=== PATIENT | male | born 1955 | race Caucasian/White ===

== ENCOUNTER 2020-08-09 09:57 | Day surgery (SDC) | payer MEDICARE ==
[~2020-08-09] VITALS: Ht 182.9 cm; Wt 77.1 kg
[~2020-08-09 09:57] MED LIST: MIDAZOLAM INJ 2MG/2ML VIAL (J2250 PER 1MG) As Ordered ONE; OFLOXACIN 0.3 % (OCUFLOX) OPTH SOL 5ML OS ONE; PHENYLEPHRINE 2.5% OPHTH SOL 2ML OS ONE; PROPARACAINE 0.5% OPHTH SOL 15ML OS ONE; TROPICAMIDE 1% OPHTH SOLN 2ML OS ONE; fentaNYL 100 MCG/2 ML INJECTION (J3010) As Ordered ONE
[2020-08-09] MEDS ORDERED: CEFUROXIME 1MG/0.1ML INTRACAMERAL INJ As Ordered ONE (10:18)
[2020-08-09] MEDS ORDERED: POVIDONE-IODINE 5% OPHTH PREP SOL 30ML As Ordered ONE (10:18)
[2020-08-09] MEDS ORDERED: DUOVISC (0.50ML VISCOAT/0.55ML PROVISC) OPHTH KIT As Ordered ONE (10:18)
[2020-08-09] MEDS ORDERED: BSS IRR 500ML/OMIDRIA 4ML IRR BAG (OR ONLY) As Ordered ONE (10:19)
[2020-08-09 12:10] VITALS: BP 135/69
[2020-08-09] MEDS ORDERED: ONDANSETRON 4MG/2ML VIAL IV PRN (12:15)
[2020-08-23] MEDS ORDERED: lumigan OD (09:49)
[2020-08-23] MEDS ORDERED: TRUS1SOL OD (09:49)
[2020-08-23] MEDS ORDERED: SIMB1SUS OD (09:49)
--- NOTE | 2020-09-04 17:09 | RO ---
OPERATIVE NOTE DATE OF OPERATION: 08/09/2020 PREOPERATIVE DIAGNOSES: 1. Visually significant nuclear sclerotic cataract, left eye. 2. Primary open angle glaucoma, moderate stage left eye. POSTOPERATIVE DIAGNOSES: 1. Visually significant nuclear sclerotic cataract, left eye. 2. Primary open angle glaucoma, moderate stage left eye. PROCEDURES: 1. Cataract extraction with use of phacoemulsification, and placement of intraocular lens, AU00T0, 17.5 D, left eye. 2. Placement of Glaukos iStent inject, left eye. 3. Use of endoscopic cyclophotocoagulation, left eye ANESTHESIA: Local (Omidria) with MAC. COMPLICATIONS: None. POSTOPERATIVE CONDITION: Stable. INDICATIONS FOR SURGERY: Blurred vision affecting patient's activities of daily living. DESCRIPTION OF PROCEDURE: The patient was seen in the preoperative area and properly identified. The correct operative eye was identified and marked. The patient received topical anesthetic, antibiotics, and topical dilating drops. The patient was then transferred to the operating room. The correct side was re-identified and a timeout was performed. The eye was prepped and draped in a sterile fashion. The eyelids were isolated with Tegaderm tape and the lids were held open with an adjustable speculum. A 1.0mm paracentesis incision was made. Omidria was injected into the anterior chamber. Viscoelastic was then injected into the anterior chamber through the paracentesis. Using a 2.4mm sharp-tipped keratome, the anterior chamber was entered via a temporal clear cornea incision. A continuous curvilinear capsulorhexis was created with Utrata forceps. Hydrodissection was performed with BSS on a blunt cannula until the nucleus was able to rotate freely. The crystalline lens was phacoemulsified and aspirated. Irrigation/aspiration was used to remove the cortical material Cohesive viscoelastic was placed into the capsular bag to deepen it. The implant was placed into the capsular bag and allowed to unfold. Placement was confirmed by visualizing the anterior capsulorhexis. Additional viscoelastic was placed in the anterior chamber, and on top of the cornea. The head was untaped, and rotated away. The microscope was rotated to 45 degrees. A gonioprism was placed on the cornea and the angle was visualized. The iStent inject was placed into the trabecular meshwork, approximately 4 clock hours apart without difficulty. A small gush of heme was noted indicating appropriate placement. No hyphema was present. The head was placed face up and the microscope to 0 degrees. ECP was carried out after viscoelastic was placed into the ciliary sulcus. Irrigation/aspiration was used to remove the viscoelastic. The clear corneal incision was hydrated with BSS on a blunt cannula. The lens was well positioned. Cefuroxime was injected into the anterior chamber. The incisions were then tested for leaks and found to be negative. The eye was then palpated for appropriate pressure and adjusted accordingly with BSS. The eyelid speculum was then carefully removed. A shield was placed over the eye. The patient tolerated the procedure well and was discharge to the recovery unit in a stable condition. GENIE
== END 2020-08-09 12:40 | disposition home or self-care (01) ==
LOC: M SDC 09:57
PROVIDERS: ATTEND Ophthalmology
DX: H40.1122 Primary open-angle glaucoma, left eye, moderate stage (principal); H25.12 Age-related nuclear cataract, left eye; K21.9 Gastro-esophageal reflux disease without esophagitis; F17.210 Nicotine dependence, cigarettes, uncomplicated
CPT/HCPCS: 66183; 66711; 66984; C1783; J2250; J2405; J3010; V2632

== ENCOUNTER → 2020-08-25 | Outpatient (CLI) | payer BC ==
[~2020-08-25] MED LIST changes: -MIDAZOLAM INJ 2MG/2ML VIAL (J2250 PER 1MG) As Ordered ONE; -OFLOXACIN 0.3 % (OCUFLOX) OPTH SOL 5ML OS ONE; -PHENYLEPHRINE 2.5% OPHTH SOL 2ML OS ONE; -PROPARACAINE 0.5% OPHTH SOL 15ML OS ONE; +SIMB1SUS OD; -TROPICAMIDE 1% OPHTH SOLN 2ML OS ONE; +TRUS1SOL OD; -fentaNYL 100 MCG/2 ML INJECTION (J3010) As Ordered ONE; +lumigan OD
== END ==
LOC: M LABSMTC 11:26
PROVIDERS: ATTEND Anesthesiology
DX: Z01.812 Encounter for preprocedural laboratory examination (principal); Z20.828 Contact with and (suspected) exposure to other viral communicable diseases

== ENCOUNTER 2020-08-30 09:45 | Day surgery (SDC) | payer MEDICARE ==
[~2020-08-30] VITALS: Ht 182.9 cm; Wt 77.1 kg
[~2020-08-30 09:45] MED LIST changes: +CEFUROXIME 1MG/0.1ML INTRACAMERAL INJ As Ordered ONE; +DUOVISC (0.50ML VISCOAT/0.55ML PROVISC) OPHTH KIT As Ordered ONE; +OFLOXACIN 0.3 % (OCUFLOX) OPTH SOL 5ML OD ONE; +PHENYLEPHRINE 2.5% OPHTH SOL 2ML OD ONE; +POVIDONE-IODINE 5% OPHTH PREP SOL 30ML As Ordered ONE; +PROPARACAINE 0.5% OPHTH SOL 15ML OD ONE; +TROPICAMIDE 1% OPHTH SOLN 2ML OD ONE
[2020-08-30] MEDS ORDERED: BSS IRR 500ML/OMIDRIA 4ML IRR BAG (OR ONLY) As Ordered ONE (11:12)
[2020-08-30] MEDS ORDERED: ACETYLCHOLINE OPHTH SOLN 1% 2ML (MIOCHOL-E) As Ordered ONE (12:02)
[2020-08-30 12:13] VITALS: BP 134/76
[2020-08-30] MEDS ORDERED: MIDAZOLAM INJ 2MG/2ML VIAL (J2250 PER 1MG) As Ordered ONE (12:25)
[2020-08-30] MEDS ORDERED: ONDANSETRON 4MG/2ML VIAL As Ordered ONE (12:25)
[2020-08-30] MEDS ORDERED: fentaNYL 250 MCG/5 ML INJECTION (J3010) As Ordered ONE (12:25)
--- NOTE | 2020-09-04 15:26 | RO ---
OPERATIVE NOTE DATE OF OPERATION: 08/30/2020 PREOPERATIVE DIAGNOSES: 1. Visually significant nuclear sclerotic cataract, left eye. 2. Primary open angle glaucoma, left eye. POSTOPERATIVE DIAGNOSES: 1. Visually significant nuclear sclerotic cataract, left eye. 2. Primary open angle glaucoma, left eye. PROCEDURE: 1. Cataract extraction with use of phacoemulsification, and placement of intraocular lens, AU00T0, 17.0 D, left eye. 2. Placement of GlaukosiStent, left eye. ANESTHESIA: Local (Omidria) with MAC COMPLICATIONS: None POSTOPERATIVE CONDITION: Stable INDICATIONS FOR SURGERY: 1. Blurred vision affecting patient's activities of daily living DESCRIPTION OF PROCEDURE: The patient was seen in the preoperative area and properly identified. The correct operative eye was identified and marked. The patient received topical anesthetic, antibiotics, and topical dilating drops. The patient was then transferred to the operating room. The correct side was re-identified and a timeout was performed. The eye was prepped and draped in a sterile fashion. The eyelids were isolated with Tegaderm tape and the lids were held open with an adjustable speculum. A 1.0mm paracentesis incision was made. Omidria was injected into the anterior chamber. Viscoelastic was then injected into the anterior chamber through the paracentesis. Using a 2.4mm sharp-tipped keratome, the anterior chamber was entered via a temporal clear cornea incision. A continuous curvilinear capsulorhexis was created with Utrata forceps. Hydrodissection was performed with BSS on a blunt cannula until the nucleus was able to rotate freely. The crystalline lens was phacoemulsified and aspirated. Irrigation/aspiration was used to remove the cortical material Cohesive viscoelastic was placed into the capsular bag to deepen it. The implant was placed into the capsular bag and allowed to unfold. Placement was confirmed by visualizing the anterior capsulorhexis. Additional viscoelastic was placed in the anterior chamber, and on top of the cornea. The head was untaped, and rotated away. The microscope was rotated to 45 degrees. A gonioprism was placed on the cornea and the angle was visualized. The iStent inject was placed into the trabecular meshwork, approximately 4 clock hours apart without difficulty. A small gush of heme was noted indicating appropriate placement. No hyphema was present. The head was placed face up and the microscope to 0 degrees. Irrigation/aspiration was used to remove the viscoelastic. The clear corneal incision was hydrated with BSS on a blunt cannula. The lens was well positioned. Cefuroxime was injected into the anterior chamber. The incisions were then tested for leaks and found to be negative. The eye was then palpated for appropriate pressure and adjusted accordingly with BSS. The eyelid speculum was then carefully removed. A shield was placed over the eye. The patient tolerated the procedure well and was discharge to the recovery unit in a stable condition.
== END 2020-08-30 13:20 | disposition home or self-care (01) ==
LOC: M SDC 09:45
PROVIDERS: ATTEND Ophthalmology
DX: H25.11 Age-related nuclear cataract, right eye (principal); H40.1110 Primary open-angle glaucoma, right eye, stage unspecified; K21.9 Gastro-esophageal reflux disease without esophagitis; Z79.899 Other long term (current) drug therapy
CPT/HCPCS: 66183; 66711; 66984; C1783; J1097; J2250; J2405; J3010; V2632